=== PATIENT | female | born 1980 | race African-American/Black ===

== ENCOUNTER 2018-04-27 11:29 | Day surgery (SDC) | payer BC ==
[2018-04-27 12:16] VITALS: BMI 26.9
[2018-04-27] MEDS ORDERED: HEPARIN NA (PORCINE) 5,000 UNITS/ML 1ML VIAL ONE (12:28)
[2018-04-27] MEDS ORDERED: BUPIVACAINE HCL/PF 0.5% (5MG/ML) 10 ML VIAL ONE (12:28)
[2018-04-27] MEDS ORDERED: SUCCINYLCHOLINE CHLORIDE 200 MG/10 ML VIAL ONE (13:29)
[2018-04-27] MEDS ORDERED: PROPOFOL 20 ML ONE ×5 (13:29→14:45)
[2018-04-27] MEDS ORDERED: fentaNYL CITRATE 250 MCG/5 ML VIAL ONE (13:29)
[2018-04-27] MEDS ORDERED: ROCURONIUM BROMIDE 50 MG/5 ML VIAL ONE (13:29)
[2018-04-27] MEDS ORDERED: MIDAZOLAM HCL 2 MG/2 ML SINGLE DOSE VIAL ONE (13:30)
[2018-04-27] MEDS ORDERED: DEXAMETHASONE SOD PHOSPHATE 4 MG/1 ML VIAL ONE (13:31)
[2018-04-27] MEDS ORDERED: LIDOCAINE HCL/PF 2% SDV 5ML VIAL ONE (13:31)
[2018-04-27] MEDS ORDERED: ONDANSETRON 4 MG/2 ML VIAL ONE (13:31)
[2018-04-27 13:43] LABS: HEMATOCRIT 41.2 % (32.4-45.2); HEMOGLOBIN 13.3 GM/dl (10.7-15.3); MCH 28.5 pg (25.7-33.7); MCHC 32.4 g/dl (32.0-36.0); MEAN CELL VOLUME 87.9 fl (80-96); MEAN PLT VOLUME 7.4 fl (7.5-11.1); PLATELET COUNT 356 K/MM3 (134-434); RBC 4.68 M/mm3 (3.60-5.2); RDW 13.2 % (11.6-15.6); WHITE BLOOD COUNT 9.3 K/mm3 (4.0-10.8)
[2018-04-27] MEDS ORDERED: ceFAZolin SODIUM 1 GM VIAL ONE (14:09)
[2018-04-27] MEDS ORDERED: NEOSTIGMINE METHYLSULFATE 0.5 MG/ML - 10 ML MDV ONE (15:08)
[2018-04-27] MEDS ORDERED: ONDANSETRON 4 MG/2 ML VIAL IVPUSH PRN (15:10)
[2018-04-27] MEDS ORDERED: LACTATED RINGERS SOLUTION 1,000 ML IV SCH (15:15)
--- NOTE | 2018-04-27 17:14 | OP ---
DATE OF OPERATION: 04/27/2018 PREOPERATIVE DIAGNOSIS: A 37-year-old, 1, para 0 with heterotopic . POSTOPERATIVE DIAGNOSIS: A 37-year-old, 1, para 0 with heterotopic . SURGERY: An examination under anesthesia, a laparoscopic left salpingectomy. SURGEON: Juventino Miller MD RECORDING ENGINEER: Shae Avery MD ANESTHESIOLOGIST: Chuy Rojas MD BLOOD LOSS: 10 mL plus 200 mL of hemoperitoneum. URINE OUTPUT: 400 mL INTRAVENOUS FLUIDS: 1200 mL FINDINGS: Include a left tubal ectopic , 200 mL of hemoperitoneum. No active bleeding. Normal-appearing right fallopian tube, normal-appearing ovaries bilaterally, normal-appearing uterus, normal upper abdominal cavity. DESCRIPTION OF PROCEDURE: The patient is a 37-year-old, G1, P0 at approximately 7 weeks' gestation status post an intrauterine insemination, who presented with mild cramping and some spotting to the office. She was noted on ultrasound to have an intrauterine with a heart rate detected, as well as an ectopic suggestive of a left tubal ectopic noted with a crown-rump length and a heart rate noted. The patient was counseled about the finding of a heterotopic with both an intrauterine and tubal present, both with heart tones. She was counseled about treatment options, and the patient opted for surgical management. The patient was noted to have a blood type of O positive and did not require RhoGAM. The patient was then counseled about the risks, benefits, and alternatives to this procedure. She signed a consent form with a witness present, and she was aware of the risks of miscarriage of the intrauterine during and after the surgical procedure. After the patient was consented and all questions were answered, the patient was then brought to the operating room where general anesthesia was achieved without difficulty. The patient was then placed in dorsal lithotomy position with Stew stirrups. She was examined under anesthesia with a normal-sized, mobile uterus. No adnexal masses were palpable on an exam under anesthesia. The patient was then prepped and then draped in the usual sterile surgical fashion. A Mckeon catheter was then carefully inserted into the patient's bladder, emptying the bladder of 400 mL of clear urine during the procedure. A sponge stick was placed in the posterior cul-de-sac, and no uterine manipulator was used. No other intrauterine instruments were placed due to the concurrent intrauterine . Our attention was then turned towards the patient's abdomen. The umbilicus was grasped with 2 Allis clamps, and 2 mL of 0.25% Marcaine was then injected into the umbilical site. A 5-mm incision was then made with a scalpel, and a Veress needle was then introduced into the abdominal cavity. placement was confirmed with a drop in pressure with the CO2 insufflation, as well as was confirmed with the laparoscopic camera upon insertion. After insufflation, a 5-mm trocar was then placed into the abdomen under direct visualization, and the above-noted intraoperative findings were observed. A left tubal was observed, and 200 mL of dark hemoperitoneum with clot was noted within the cul-de-sac and slightly along the colic gutters. There was no upper abdominal bleeding or blood noted. There was no active bleeding noted within the cavity, and there was normal-appearing liver edge and upper abdominal organs. Our 2 assistant public defender ports were then placed, first in the left lower quadrant, then in the right lower quadrant. The incision sites were injected with 2 mL of dilute Marcaine, and then, a 5-mm incision was made with a scalpel; 5-mm trocars were then placed with direct visualization, and the procedure then continued. The same was done on the right side. The left fallopian tube appeared dilated at the end consistent with a tubal ectopic . There was no active bleeding noted from the tubal , and it was noted to be intact and not ruptured. The left tube was grasped with a LigaSure, and a left salpingectomy was performed using the LigaSure. The tubal was then placed in the anterior cul-de-sac in order to identify it. The umbilical trocar was then removed, and the camera was placed through one of the side 5-mm ports. The umbilical incision was then extended to a 10-mm incision to accommodate a 10-mm EndoCatch bag. A 10-mm trocar was then placed under direct visualization, and the EndoCatch bag was placed within the abdominal cavity. The ectopic and left fallopian tube were then placed within the EndoCatch bag and removed from the abdomen under direct visualization. This was sent to Pathology for evaluation. At this time, the abdomen was irrigated, and the hemoperitoneum as well as blood clots were evacuated from the peritoneal cavity. All surgical sites were hemostatic. There was no active bleeding noted at this time, and the procedure was concluded. First, the right laparoscopic trocar was then removed under direct visualization without complication. The 10-mm umbilical incision was then closed under direct visualization with 0 Vicryl on a UR-6 needle in a [id number], and the fascia was thereby closed. Closure of fascia was then confirmed laparoscopically through the left 5-mm port and was noted to be intact. The left 5-mm trocar was then removed. The two 5-mm incisions were closed with 4-0 Monocryl with interrupted sutures, and the umbilical site was closed in a subcuticular fashion with the 4-0 Monocryl. Bandages were placed. The ins and outs were noted. The instrument and sponge count were correct, and the procedure was concluded. The Mckeon was removed at the conclusion of the procedure. The patient was then extubated without difficulty and taken to the recovery room. There were no complications of the procedure, and the specimen was sent to Pathology for evaluation. Shae Avery MD, dictating for MD JUVENTINO Sanders M.D. [id number]
[2018-04-27 20:32] VITALS: BP 121/70; PULSE 69; TEMP 97.9
--- NOTE | 2018-04-29 14:49 | PATH ---
Surgical Pathology Report Patient Name: ERMIAS MARCH Med. Rec. #: [id number] /Age/Gender: 1980 (Age: 37) / F Account: [id number] Location: [facility] Taken: 04/27/2018 Received: 04/27/2018 Reported: 04/29/2018 Physicians: Denny Miller M.D. Specimen(s) Received ECTOPIC AND LEFT TUBE Clinical History Heterotopic IUP with heart, left ectopic tubal with heart Final Diagnosis ECTOPIC AND LEFT TUBE, SALPINGECTOMY: CHORIONIC VILLI AND TROPHOBLASTIC TISSUE PRESENT WITHIN FALLOPIAN TUBE, CONSISTENT WITH ECTOPIC . Electronically Signed Yasmin Valdez M.D. Gross Description Received in formalin labeled "ectopic and the left tube," is a 3.5 cm in length dilated portion of fallopian tube. The outer surface is puckett-cooney and smooth with focal attached villous tissue. Sectioning reveals a hemorrhagic lumen. Route Delivery Supervisor sections are submitted in 2 cassettes as follows: 1-villous tissue; 2-cross sections of fallopian tube. /04/28/2018 [facility]04/28/2018
== END 2018-04-27 20:32 | disposition home or self-care (01) ==
LOC: FASU 11:29
PROVIDERS: ATTEND Obstetrics & Gynecology Reproductive Endocrinology
PROC: 0UB64ZZ Excision of Left Fallopian Tube, Percutaneous Endoscopic Approach (ICD-10-PCS; 2018-04-27)
PROC: 10T24ZZ Resection of Products of Conception, Ectopic, Percutaneous Endoscopic Approach (ICD-10-PCS; principal; 2018-04-27 14:22)
DX: O00.112 Left tubal pregnancy with intrauterine pregnancy (principal)
CPT/HCPCS: 36415; 84703; 85027; 88305-TC; 94760; J1644